=== PATIENT | female | born 1990 | race Caucasian/White ===

== ENCOUNTER 2019-01-08 14:06 | Emergency (ER) | payer MEDICAID ==
[~2019-01-08] VITALS: Ht 157.5 cm; Wt 52.6 kg
[2019-01-08 14:11] VITALS: BP 121/64; PULSE 86; RESP 18; Ht 157.5 cm; Wt 52.6 kg
[2019-01-08] MEDS ORDERED: PRED20TA PO (14:27)
[2019-01-08] MEDS ORDERED: AMOX500C2 PO (14:27)
[2019-01-08] MEDS ORDERED: IBUP-1561 PO (14:27)
--- NOTE | 2019-01-08 14:29 | ERD ---
ER Documentation Chief Complaint Chief Complaint sorethroat & fever x1wk HPI ED 3 patient. 28-year-old female presents with sore throat fever for last week. She noticed some red patches in the back of her throat. She has a history of trauma. She denies cough, vomiting, abdominal pain, chest pain. ROS All systems reviewed and are negative except as per history of present illness. Medications Home Meds Active Scripts Ibuprofen* (Motrin*) 400 Mg Tab, 400 MG PO Q6, #15 TAB Prov:KEELY KING MD 01/08/19 Prednisone* (Prednisone*) 20 Mg Tab, 40 MG PO DAILY for 4 Days, TAB Prov:KEELY KING MD 01/08/19 Amoxicillin* (Amoxicillin*) 500 Mg Cap, 500 MG PO TID for 10 Days, CAP Prov:KEELY KING MD 01/08/19 Allergies Allergies: Coded Allergies: No Known Allergy (Unverified , 01/08/19) FmHx Family History: No diabetes, No coronary disease, No other Physical Exam Vitals Vital Signs Date Temp Pulse Resp B/P (MAP) Pulse Ox O2 O2 Flow FiO2 Time Delivery Rate 01/08/19 98.8 86 18 121/64 99 14:11 (83) Physical Exam Const: No acute distress Head: Atraumatic Eyes: Normal Conjunctiva ENT: Normal External Ears, Nose and Mouth. TMs normal. Redness in the back of the throat with petechia on the soft palate. Uvula midline and airway patent. Tender and slightly enlarged anterior cervical lymph nodes. Neck: Full range of motion. No meningismus. Resp: Clear to auscultation bilaterally Cardio: Regular rate and rhythm, no murmurs Abd: Soft, non tender, non distended. Normal bowel sounds Skin: No petechiae or rashes Back: No midline or flank tenderness Ext: No cyanosis, or edema Neur: Awake and alert Psych: Normal Mood and Affect Procedures/MDM Patient presents with petechia in the posterior oropharynx with a history of fever and lymphadenitis. Will treat empirically given the petechia and signs of bacterial pharyngitis with amoxicillin, short course of prednisone for lymphadenitis, ibuprofen, with recommendations for primary care follow-up and return precautions. She has no signs of abscess, airway obstruction, additional complications. The patient was stable with no new complaints during the ER course. Clinically, there is no current evidence to suggest meningitis, sepsis, acute abdomen, pneumonia, stroke, acute coronary syndrome, pulmonary embolism, aortic dissection or any other emergent condition appearing to require further evaluation or hospitalization. Patient counseled regarding my diagnostic impression and care plan. Prior to discharge all questions answered. Pt agrees with treatment plan and understands strict return precautions. Pt is instructed to follow up with primary care provider within 24-48 hours. Precautionary instructions provided including instructions to return to the ER if not improving or for any worsening or changing symptoms or concerns. Departure Diagnosis: Primary Impression: Sore throat Condition: Stable Patient Instructions: Pharyngitis, Strep (Presumed) Referrals: DOCTOR,NOT ON STAFF (PCP) Additional Instructions: We will treat for infection. Recheck for new or worsening symptoms with primary care doctor. KEELY KING MD Jan 08, 2019 14:29
== END 2019-01-09 14:49 | disposition home or self-care (01) ==
LOC: E/R 14:06
DX: J02.9 Acute pharyngitis, unspecified (principal)
CPT/HCPCS: 99283